=== PATIENT | female | born 1970 | race Caucasian/White ===

== ENCOUNTER → 2018-12-28 | Day surgery (SDC) | payer MEDICARE, OTHER ==
[~2018-12-28] MED LIST: ALPR0.25 PO; AMLO5TAB10 PO; ESCITALOPRAM OX20 MG PO; GABA600T7 PO; IBUP-1060 PO; LIDOCAINE 2% PF 5 ML VIAL. ONE; LISI-334 PO; METO-239 PO; MORP30TA83 PO; OMEP40CA5 PO; PROPOFOL 120 ML IV ONE; PROPOFOL 20 ML IV ONE
[2018-12-28] MEDS: IV RINGERS,LACTATED 1000ML 1,000 ML IV SCH ×2 (08:00→09:18)
[2018-12-28 09:25] VITALS: BP 110/68
--- NOTE | 2018-12-29 13:09 | PATHOLOGY ---
[facility] Accession Number: [id number] . 01 Material submitted: . PART A: stomach - RANDOM GASTRIC BIOPSY PART B: esophagus - GE JUNCTION BIOPSY PART C: esophagus - DISTAL ESOPHAGUS BIOPSY. Modifiers: distal PART D: esophagus - PROXIMAL ESOPHAGUS BIOPSY. Modifiers: proximal PART E: colon - SIGMOID POLYP BIOPSY. Modifiers: sigmoid . 01 Clinical history: . Weight loss, nausea . 02 Diagnosis: A. Random gastric biopsies: - Chronic gastritis, mild. . B. Gastroesophageal junction biopsies: - Segments of esophagogastric and gastric mucosa showing moderate chronic inflammation and focal gastric foveolar hyperplasia. . C. Esophageal biopsies, distal esophagus: - Segments of mildly hyperplastic squamous esophageal mucosa consistent with reflux changes. . D. Esophageal biopsies, proximal esophagus: - Segments of mildly hyperplastic squamous esophageal mucosa consistent with reflux changes. . E. Colon biopsy, sigmoid polyp: - Tubular adenoma. . (DAFNEM:ronaldo; 12/29/2018) MBR/12/29/2018 . 02 Comment: Sections of the random gastric biopsy reveal segments of gastric body and gastric antral mucosa showing congestion and mild chronic inflammation. A properly controlled immunoperoxidase stain for Helicobacter is negative for Helicobacter organisms. . Sections of the gastroesophageal junction biopsy reveal segments of esophagogastric and gastric mucosa showing moderate chronic inflammation with focal gastric foveolar hyperplasia. The squamous esophageal mucosa is hyperplastic consistent with reflux changes. There is no evidence of Terry's change, dysplasia, or malignancy. . Sections of the distal and proximal esophageal biopsies appear similar and reveal segments of tangentially oriented mildly hyperplastic squamous esophageal mucosa. The findings are consistent with reflux changes. There is no evidence of an eosinophilic esophagitis. . Sections of the sigmoid colon biopsy reveal a tubular adenoma showing no high-grade dysplasia or evidence of malignancy. . (SRINIVASAN:plastic sewer; 12/29/2018) . Special stain performed: Immunoperoxidase stain for Helicobacter on A1. . 02 Electronically signed: . Taz Johnson MD, Pathologist NPI- [id number] . 01 Gross description: . A. Received in formalin labeled "Julio Palacios, random gastric BX," are 4 segments of gale soft tissue measuring 1.5 x 0.8 x 0.3 cm in aggregate dimensions and ranging from 0.3 to 0.4 cm in maximum dimension. The specimen is submitted entirely in cassette A1. . B. Received in formalin labeled "Arwine, Julio, GE junction BX," are 4 segments of gale soft tissue measuring 1.2 x 0.7 x 0.3 cm in aggregate dimensions and ranging from 0.3 to 0.4 cm in maximum dimension. The specimen is submitted entirely in cassette B1. . C. Received in formalin labeled "Arwine, Julio, distal esophagus BX, rule out EOE," are 2 segments of gale soft tissue measuring 0.9 x 0.2 x 0.1 cm in aggregate dimensions and ranging from 0.4 to 0.5 cm in maximum dimension. The specimen is submitted entirely in cassette C1. . D. Received in formalin labeled "Arwine, Julio, proximal esophagus BX, rule out EOE," are 2 segments of gale soft tissue measuring 1.1 x 0.2 x 0.1 cm in aggregate dimensions and ranging from 0.4 to 0.7 cm in maximum dimension. The specimen is submitted entirely in cassette D1. . E. Received in formalin labeled "Nubiae, Julio, sigmoid polyp BX," is a single segment of gale soft tissue measuring 0.5 cm in maximum dimension. The specimen is entirely submitted in cassette E1. (TSD; 12/28/2018) TOB/TOB . 02 Pathologist provided ICD-10: K29.50, K21.9, D12.5 . 02 CPT . 902338, 401993, 997492, 863401, 501781, [id number] Specimen Comment: A courtesy copy of this report has been sent to Specimen Comment: [phone], . Specimen Comment: Report sent to / DR MAGANA Performed at: [address] [place] [address] [address], [place], [place] [id number] MD Thomas Haas MD Phone: [phone] Performed at: [address] [id number] MD Taz Johnson MD Phone: [phone]
== END | disposition home or self-care (01) ==
LOC: SURG 07:05
PROVIDERS: ATTEND Internal Medicine
DX: D12.5 Benign neoplasm of sigmoid colon (principal); K29.50 Unspecified chronic gastritis without bleeding; K64.0 First degree hemorrhoids; K20.9 Esophagitis, unspecified; K31.89 Other diseases of stomach and duodenum; K22.8 Other specified diseases of esophagus; K64.4 Residual hemorrhoidal skin tags; F12.90 Cannabis use, unspecified, uncomplicated; I10 Essential (primary) hypertension; Z90.710 Acquired absence of both cervix and uterus; F32.9 Major depressive disorder, single episode, unspecified; F41.9 Anxiety disorder, unspecified; Z90.722 Acquired absence of ovaries, bilateral; Z82.3 Family history of stroke; Z82.49 Family history of ischemic heart disease and other diseases of the circulatory system; Z83.79 Family history of other diseases of the digestive system; Z72.89 Other problems related to lifestyle; Z87.891 Personal history of nicotine dependence
CPT/HCPCS: 43239; 45380; 88305; 88342; J2001; J2704; 45378

== ENCOUNTER → 2018-12-30 | Outpatient (CLI) | payer MEDICARE ==
[2018-12-28 09:25] VITALS: BP 110/68
[~2018-12-30] MED LIST changes: +CONTRAST GIVEN. MC PRN; +IOHEXOL 240 MG/ML 50ML VIAL. PO ONE; -LIDOCAINE 2% PF 5 ML VIAL. ONE; -PROPOFOL 120 ML IV ONE; -PROPOFOL 20 ML IV ONE
--- NOTE | 2018-12-30 18:34 | RAD ---
CT of the abdomen and pelvis with without contrast, 12/30/2018: HISTORY: Weight loss, nausea Multidetector CT imaging was performed following oral administration of contrast. No IV contrast was administered due to the patient's renal insufficiency. The unopacified liver is unremarkable. No gallbladder abnormality is seen. The pancreas is unremarkable. The spleen is of normal size. A small accessory spleen is noted. The unopacified kidneys are unremarkable. No adrenal abnormality is detected. The abdominal aorta is of normal caliber. No abdominal or pelvic adenopathy is seen. The uterus is surgically absent. The bowel loops are not dilated. No free fluid is evident in the abdomen or pelvis. There is a mild lumbar scoliosis with mild scattered degenerative change in the lumbar spine. IMPRESSION: No acute abdominal or pelvic abnormality is detected. PQRS Compliance Statement: One or more of the following individualized dose reduction techniques were utilized for this examination: 1. Automated exposure control 2. Adjustment of the mA and/or kV according to patient size 3. Use of iterative reconstruction technique Electronically signed by: Teo Locke MD (12/30/2018 6:31 PM) [facility]
== END | disposition home or self-care (01) ==
LOC: CT 10:32
PROVIDERS: ATTEND Internal Medicine
DX: R63.4 Abnormal weight loss (principal); R11.0 Nausea; M41.86 Other forms of scoliosis, lumbar region; M47.816 Spondylosis without myelopathy or radiculopathy, lumbar region; Z90.710 Acquired absence of both cervix and uterus
CPT/HCPCS: 74176; Q9966

== ENCOUNTER → 2019-05-11 | Outpatient (CLI) | payer MEDICARE, OTHER ==
[2018-12-28 09:25] VITALS: BP 110/68
[~2019-05-11] MED LIST changes: -CONTRAST GIVEN. MC PRN; -IOHEXOL 240 MG/ML 50ML VIAL. PO ONE; +ZOLPIDEM 5 MG TABLET. PO ONE
--- NOTE | 2019-05-12 14:13 | SLEEP ---
DATE OF STUDY: 05/11/2019 ATTENDING PHYSICIAN: Chris Ferrer MD The patient is 49 years old, who weighs 135 pounds with a BMI of 20. The patient's Framingham score was 8. The patient is also on 30 mg of morphine t.i.d. for back pain and gabapentin and Lexapro. A diagnostic study was performed at [facility]. During the night study, the patient spent 423 minutes in bed and slept for 364 minutes with a sleep efficiency of 86%. Sleep latency was 33 minutes with a REM latency of 147 minutes. Overall, sleep architecture showed normal stage 1 sleep, increased stage 2 sleep, increased slow wave and reduced REM sleep. During the night study, the patient had 16 obstructive apneas, 45 mixed apneas, 8 central apneas, and 51 hypopneas. The patient's apnea-hypopnea index was 20 per hour, supine index 26 per hour with a REM index of 27 per hour. PLMs were seen at index of 9 per hour and 2 per hour caused EEG arousals. EKG monitoring revealed mean heart rate of 58 beats per minute, no arrhythmias observed. Nocturnal oximetry study revealed a mean oxygen saturation 98% with the lowest of 80%. A 32% of time oxygen saturation remained between 80% and 89%. The patient would benefit from return to the sleep lab for CPAP titration study. IMPRESSION: 1. Moderate sleep apnea-hypopnea syndrome at an AHI of 20 per hour with a REM AHI of 27 per hour. 2. Nocturnal hypoxia secondary to obstructive sleep apnea and suspected hypoventilation. The patient is currently on chronic morphine. 3. No clinically significant periodic limb movements. RECOMMENDATIONS: 1. The patient should return to the sleep lab for CPAP titration study. 2. Once optimum CPAP pressure is achieved, then follow up in 4-6 weeks to assess compliance with CPAP and to document clinical improvement. 3. Avoid [employer] depressants. 4. Cautioned regarding driving until symptoms of sleep apnea resolve with the use of CPAP. CAL VICENTE MD DR: ROSEANNE/nicko JOB#: [id number] / [id number] KEILY Lomax MD
== END | disposition home or self-care (01) ==
LOC: SLPLAB 20:00
PROVIDERS: ATTEND Internal Medicine Pulmonary Disease
DX: G47.33 Obstructive sleep apnea (adult) (pediatric) (principal); G47.34 Idiopathic sleep related nonobstructive alveolar hypoventilation
CPT/HCPCS: 95810